=== PATIENT | female | born 1945 | race Hispanic/Latino ===

== ENCOUNTER 2023-08-20 07:38 | Day surgery (SDC) | payer OTHER ==
[2023-08-15 15:08] VITALS: BP 120/66; PULSE 90; RESP 20
[2023-08-15 15:33] LABS: EOSINOPHILS # (AUTO) 0.36 K/uL (0.00-0.70); EOSINOPHILS % (AUTO) 3.5 % (0.0-8.0); HEMATOCRIT 34.6 % (36-48); IMMATURE GRANULOCYTE ABSOLUTE 0.06 K/uL (0-1); LYMPHOCYTES # (AUTO) 2.3 K/uL (1.0-4.8); LYMPHOCYTES % (AUTO) 22.8 % (21.0-51.0); MEAN CORPUSCULAR HEMOGLOBIN 32.4 pg (27.0-33.0); MEAN CORPUSCULAR HGB CONC 34.1 g/dL (32.0-36.0); MEAN CORPUSCULAR VOLUME 95.1 fL (79-99); MONOCYTES # (AUTO) 0.5 K/uL (0.1-1.0); MONOCYTES % (AUTO) 5.3 % (3.0-13.0); NEUTROPHILS # (AUTO) 6.8 K/uL (1.8-7.7); NEUTROPHILS % (AUTO) 66.8 % (40.0-77.0); PLATELET COUNT (AUTO) 129 K/uL (130-400); RED BLOOD CELL COUNT(AUTO) 3.64 MIL/uL (4.00-5.50); RED CELL DISTRIBUTION WIDTH 12.9 % (11.0-15.5); WHITE BLOOD COUNT (AUTO) 10.2 K/uL (4.8-10.8)
[2023-08-15 15:39] LABS: CREATININE 1.5 mg/dL (0.5-1.5); POTASSIUM 5.1 mmol/L (3.5-5.1)
[2023-08-15 15:41] LABS: INR 1.01 (0.85-1.15); PROTHROMBIN TIME 11.7 SEC (9.6-11.6)
[2023-08-15 15:42] LABS: PARTIAL THROMBOPLASTIN TIME 28.7 SEC (26.3-35.5)
[2023-08-20] VITALS (8 sets, daily range): BP systolic 103–119; BP diastolic 55–69; PULSE 72–79; RESP 11–16
[~2023-08-20] VITALS: Ht 157.5 cm; Wt 66.8 kg
[2023-08-20] MEDS ORDERED: 0.9%NACL 1000ML 1,000 ML IV ONE (09:26)
[2023-08-20] MEDS ORDERED: MYRBETRIQ (09:46)
[2023-08-20] MEDS ORDERED: PIOG30TA70 PO (09:46)
[2023-08-20] MEDS ORDERED: MIRA50TA PO (09:46)
[2023-08-20] MEDS ORDERED: ESCI5TAB16 PO (09:46)
[2023-08-20] MEDS ORDERED: GABA-529 PO (09:46)
[2023-08-20] MEDS ORDERED: INSU100V37 SQ (09:46)
[2023-08-20] MEDS ORDERED: FURO20TA4 PO (09:52)
[2023-08-20] MEDS ORDERED: LEVO50CA4 PO (09:52)
[2023-08-20] MEDS ORDERED: AEC81 PO (09:52)
[2023-08-20] MEDS ORDERED: METF-446 PO (09:52)
[2023-08-20] MEDS ORDERED: SITA100T12 PO (09:52)
[2023-08-20] MEDS ORDERED: OMEP20CA12 PO (09:52)
[2023-08-20] MEDS ORDERED: MECL-302 PO (09:52)
[2023-08-20] MEDS ORDERED: ATOR10 PO (09:52)
[2023-08-20] MEDS ORDERED: CARV3.12 PO (09:52)
[2023-08-20] MEDS ORDERED: LOSA50TA64 PO (09:52)
[2023-08-20] MEDS ORDERED: MIDAZOLAM HCL 1 MG/ML 2ML VIAL ONE ×2 (10:06→10:37)
[2023-08-20] MEDS ORDERED: MEPERIDINE-PF 25 MG/ML SYG ONE ×2 (10:06→10:37)
[2023-08-20] MEDS ORDERED: LIDOCAINE HCL 1% MDV 50ML VIAL ONE (10:10)
[2023-08-20] MEDS ORDERED: CEFAZOLIN SODIUM 1 GM VIAL ONE (10:10)
[2023-08-20] MEDS ORDERED: BUPIVACAINE/PF 0.25% 30ML VIAL IJ ONE (10:11)
[2023-08-20] MEDS ORDERED: BACITRACIN 1 EACH PACKET TP ONE (11:06)
[2023-08-20] MEDS ORDERED: TRAM50TA4 PO (11:19)
[2023-08-20] MEDS ORDERED: ACETAMINOPHEN 500 MG TABLET PO PRN (11:30)
[2023-08-20] MEDS ORDERED: ACETAMINOPHEN WITH CODEINE 1 TAB TAB PO PRN (11:30)
== END 2023-08-20 14:45 | disposition home or self-care (01) ==
LOC: DAH 07:38
PROVIDERS: ATTEND Internal Medicine Cardiovascular Disease
DX: Z45.010 Encounter for checking and testing of cardiac pacemaker pulse generator [battery] (principal); I44.2 Atrioventricular block, complete; I50.22 Chronic systolic (congestive) heart failure; I42.8 Other cardiomyopathies; Z79.01 Long term (current) use of anticoagulants; Z79.82 Long term (current) use of aspirin; Z79.899 Other long term (current) drug therapy; Z98.890 Other specified postprocedural states; Z79.84 Long term (current) use of oral hypoglycemic drugs; Z90.89 Acquired absence of other organs; Z90.49 Acquired absence of other specified parts of digestive tract; Z82.49 Family history of ischemic heart disease and other diseases of the circulatory system
CPT/HCPCS: 80048; 85025; 85610; 85730; 36415; 93005; 33229; 82948; C2621; J0690; J7030; J0665; J2250 ×2; J2175 ×2; J3490; A4215; A4222; A4221; A4663; A4216; A4606; A4223 ×3; 99156; 99157

== ENCOUNTER 2024-01-22 06:17 | Day surgery (SDC) | payer OTHER ==
[~2024-01-22] VITALS: Ht 162.6 cm; Wt 68.0 kg
[2024-01-22] VITALS (9 sets, daily range): BP systolic 95–125; BP diastolic 54–74; PULSE 72–88; RESP 14–17
[~2024-01-22 06:17] MED LIST: AEC81 PO; ATOR10 PO; CARV3.12 PO; ESCI5TAB16 PO; FURO20TA4 PO; GABA-529 PO; INSU100V37 SQ; LEVO50CA4 PO; LOSA50TA64 PO; MECL-160 PO; METF-446 PO; MIRA50TA PO; OMEP20CA12 PO; PIOG30TA70 PO; SITA100T12 PO; TRAM50TA4 PO
[2024-01-22] MEDS: 0.9%NACL 1000ML 1,000 ML IV ONE (07:15)
[2024-01-22] MEDS ORDERED: PROPOFOL 10 MG/ML 20ML VIAL IV ONE ×2 (08:15)
== END 2024-01-22 09:35 | disposition home or self-care (01) ==
LOC: ENDO 06:17 → DAH 06:17 → ENDO 09:35
PROVIDERS: ATTEND Internal Medicine Gastroenterology
DX: Z12.11 Encounter for screening for malignant neoplasm of colon (principal); K57.30 Diverticulosis of large intestine without perforation or abscess without bleeding; K64.0 First degree hemorrhoids; K63.5 Polyp of colon; R13.10 Dysphagia, unspecified; K29.50 Unspecified chronic gastritis without bleeding; R63.30 Feeding difficulties, unspecified; K21.9 Gastro-esophageal reflux disease without esophagitis; Z86.010 Personal history of colon polyps; I10 Essential (primary) hypertension; F32.A Depression, unspecified; E11.9 Type 2 diabetes mellitus without complications; E03.9 Hypothyroidism, unspecified; E78.5 Hyperlipidemia, unspecified; Z98.890 Other specified postprocedural states; Z79.899 Other long term (current) drug therapy; Z95.0 Presence of cardiac pacemaker; Z79.84 Long term (current) use of oral hypoglycemic drugs; Z90.89 Acquired absence of other organs; Z98.51 Tubal ligation status; Z68.25 Body mass index [BMI] 25.0-25.9, adult; Z79.82 Long term (current) use of aspirin; Z79.01 Long term (current) use of anticoagulants
CPT/HCPCS: 82948 ×2; 43239; 45385; J7030 ×2; J2704 ×2; A4620; A4215 ×2; A4223; A7002; A4222; A4221; A4663; A4606; J3490

== ENCOUNTER → 2024-03-11 | Outpatient (CLI) | payer OTHER ==
[~2024-03-11] MED LIST changes: -MECL-160 PO; +MECL-302 PO; -PIOG30TA70 PO; -TRAM50TA4 PO
== END | disposition home or self-care (01) ==
LOC: RAH 08:34
PROVIDERS: ATTEND Internal Medicine Gastroenterology
DX: R13.10 Dysphagia, unspecified (principal); R63.30 Feeding difficulties, unspecified
CPT/HCPCS: 74230; 92611

== ENCOUNTER → 2024-05-15 | Outpatient (CLI) | payer OTHER, MEDICARE | END | disposition home or self-care (01) | LOC: RAH 10:10 | PROVIDERS: ATTEND Internal Medicine Gastroenterology | DX: R13.10 Dysphagia, unspecified (principal) | CPT/HCPCS: 74240 ==